=== PATIENT | male | born 2000 | race Caucasian/White ===

== ENCOUNTER 2020-12-06 13:00 | Outpatient (RCR) | payer BC | END 2021-02-19 | disposition still patient (30) | LOC: WSPT | DX: S06.0X0A Concussion without loss of consciousness, initial encounter (principal); H83.2X9 Labyrinthine dysfunction, unspecified ear ==

== ENCOUNTER → 2021-05-04 | Outpatient (CLI) | payer OTHER, BC | LOC: COL.RAD 14:00 | DX: S06.0X0D Concussion without loss of consciousness, subsequent encounter (principal); M79.18 Myalgia, other site; G44.319 Acute post-traumatic headache, not intractable; V89.2XXD Person injured in unspecified motor-vehicle accident, traffic, subsequent encounter ==